=== PATIENT | male | born 1960 | race African-American/Black ===

== ENCOUNTER 2024-08-14 08:37 | Emergency (ER) | payer MEDICARE, OTHER ==
[~2024-08-14] VITALS: Wt 116.1 kg
[2024-08-14 08:58] VITALS: BP 179/136
[2024-08-14] MEDS ORDERED: Ondansetron Hydrochloride 4 MG/2 ML VIAL IV ONE (09:05)
[2024-08-14] MEDS ORDERED: MORPHINE Sulfate 2 MG/ML SYR IV ONE ×4 (09:05→13:40)
[2024-08-14] MEDS ORDERED: SODIUM CHLORIDE 0.9% 500 ML IV ONE (09:05)
[2024-08-14 09:13] LABS: BASO # 0.1 10*3/uL (0.0-0.1); BASO % 0.9 % (0.0-1.0); EOS # 0.1 10*3/uL (0.0-0.4); EOS % 1.2 % (1.0-4.0); HEMATOCRIT 48.2 % (42.0-52.0); MEAN CELL VOLUME 88.3 fl (80.0-94.0); MEAN CORPUSCULAR HGB 29.9 pg (27.0-31.0); MEAN CORPUSCULAR HGB CONC 33.8 g/dl (33.0-37.0); MEAN PLATELET VOLUME 9.5 fl (9.6-12.3); MONO # 0.6 10*3/uL (0.1-1.0); MONO % 9.2 % (3.0-9.0); NEUT # 3.7 10*3/uL (2.3-7.9); NEUT % 57.3 % (47.0-73.0); PLATELET COUNT AUTOMATED 279 10*3/uL (130-400); RED BLOOD COUNT 5.46 10*6/uL (4.50-5.90); RED CELL DISTRI WIDTH 13.7 % (0-14.5); WHITE BLOOD COUNT 6.5 10*3/uL (4.8-10.8)
[2024-08-14 09:39] LABS: BUN 12 mg/dl (9-23); CHLORIDE 106 mmol/L (98-107); POTASSIUM 4.1 mmol/L (3.4-5.1)
[2024-08-14 11:11] VITALS: BP 153/102
[2024-08-14] MEDS ORDERED: CARVEDILOL25 MG PO (11:29)
[2024-08-14] MEDS ORDERED: VITAMIN D325 MC1 PO (11:31)
[2024-08-14] MEDS ORDERED: VALSARTAN-HCTZ1 EAC4 PO (11:32)
[2024-08-14] MEDS ORDERED: HYDRALAZINE HYD50 MG PO (11:32)
[2024-08-14] MEDS ORDERED: COREG25 MG PO (11:33)
[2024-08-14 11:37] VITALS: BP 164/98
[2024-08-14] MEDS ORDERED: BISACODYL 10 MG SUPP R PRN (11:55)
[2024-08-14] MEDS ORDERED: BISACODYL 5 MG TAB PO PRN (11:55)
[2024-08-14] MEDS ORDERED: Ondansetron Hydrochloride 4 MG/2 ML VIAL IV PRN (11:55)
[2024-08-14] MEDS ORDERED: Magnesium Hydroxide 30 ML UDC PO PRN (11:55)
[2024-08-14] MEDS ORDERED: ACETAMINOPHEN 650 MG SUPP R PRN (11:55)
[2024-08-14] MEDS ORDERED: SODIUM CHLORIDE 0.9% 1,000 ML IV ONE (12:00)
[2024-08-14 12:05] VITALS: BP 160/84
[2024-08-14 12:41] LABS: BILIRUBIN Negative (Negative); BLOOD 2+ (Negative); CLARITY Clear (Clear); COLOR Yellow (Yellow); GLUCOSE Negative (Negative); KETONE 1+ (Negative); LEUKO ESTERASE Negative (Negative); NITRITE Negative (Negative)
[2024-08-14 13:21] LABS: RBC 51-100 rbc/hpf (0-2)
[2024-08-14 13:22] LABS: WBC 0-2 wbc/hpf (0-5)
[2024-08-14] MEDS ORDERED: TRAMADOL HCL50 MG PO (13:59)
[2024-08-14] MEDS ORDERED: FLOMAX0.4 MG PO (13:59)
[2024-08-14] MEDS ORDERED: HEPARIN SODIUM 5,000 UNIT/ML VIAL SC SCH (22:00)
== END 2024-08-14 14:12 | disposition admitted as inpatient to this hospital (09) ==
LOC: ED 08:37 → EDHOLD 10:16 → ED 14:12
PROVIDERS: Internal Medicine
DX: N17.9 Acute kidney failure, unspecified (principal); K56.7 Ileus, unspecified; I16.0 Hypertensive urgency; R61 Generalized hyperhidrosis; Z98.890 Other specified postprocedural states